=== PATIENT | female | born 1985 | race Asian ===

== ENCOUNTER 2020-10-11 20:30 | Emergency (ER) | payer SELFPAY ==
[2020-10-11] MEDS ORDERED: Ketorolac Tromethamine 30 MG/ML VIAL ONE (21:09)
[2020-10-11] MEDS ORDERED: HYDROcodone/Acetaminophen 5/325 mg Tablet ONE (21:10)
== END 2020-10-11 22:34 | disposition home or self-care (01) ==
LOC: CSHERS 20:30
DX: L05.01 Pilonidal cyst with abscess (principal)
CPT/HCPCS: 10080; 96372; J1885